=== PATIENT | male | born 1960 | race Caucasian/White ===

== ENCOUNTER 2023-03-01 06:11 | Emergency (ER) | payer OTHER, SELFPAY ==
[2023-03-01] VITALS (8 sets, daily range): BP systolic 130–162; BP diastolic 82–103; PULSE 70–83; RESP 14–20; TEMP 36.6–37.2; O2SAT 95–98; BMI 33.2
--- NOTE | ~2023-03-01 | XR_ITS ---
EXAMINATION: XR CHEST CLINICAL INFORMATION: Epigastric pain. Possible esophageal foreign body. COMPARISON: None available. TECHNIQUE: 2 views of the chest were obtained. FINDINGS: No significant abnormality is noted involving the heart, lungs, mediastinum, bony thorax or soft tissues. XR/XR chest 2V IMPRESSION: Unremarkable chest exam.
--- NOTE | 2023-03-01 06:47 | ED.GENADULT ---
HPI - General Adult General Chief complaint: General Medical Stated complaint: ?Something in throat Time Seen by Provider: 03/01/23 06:47 Source: patient Mode of arrival: ambulatory Limitations: no limitations History of Present Illness HPI narrative: Patient is a 62 year old assigned male at with a history of anxiety presenting to the emergency department today with esophagus pain. Patient states that last night he ate muscles and afterward, was having pain with swallowing. Patient states that he is able to swallow however, it hurts. Patient states that he has been able to have multiple glasses of water and not thrown anything up. Patient denies any dizziness, lightheadedness, abdominal pain, nausea, vomiting, fever, chills, blurry vision, double vision, loss of vision, chest pain, difficulty breathing, shortness of breath, back pain, night sweats, pain with urination, increased urinary frequency, increased urinary urgency, blood in his urine or stool, syncope or a near syncopal episode, recent trauma or falls, bowel incontinence, bladder incontinence, bowel retention, bladder retention, or any other complaints at this time. Onset (ago): hour(s) Severity: mild Severity scale (1-10): 3 Quality: aching Pain Consistency: constant Relieving factors: none Exacerbating factors: other (swallowing) Associated symptoms: denies other symptoms Treatments prior to arrival: none Related Data Previous Rx's Medication Instructions Recorded omeprazole 20 mg capsule,delayed 20 mg PO DAILY #14 caps 03/01/23 release Allergies Allergy/AdvReac Type Severity Reaction Status Date / Time No Known Allergies Allergy Unverified 06/05/20 16:30 [No Known Allergies*] Review of Systems Constitutional: Constitutional: Reports no additional constitutional complaints, Denies chills, Denies fever(s) and Denies night sweats Eyes: Eyes: Reports no additional eye complaints, Denies blurry vision, Denies change in vision, Denies diplopia, Denies eye discharge, Denies loss of vision and Denies eye pain ENT: Denies dizziness Comments: pain with swallowing Cardiovascular: Cardiovascular: Reports no additional cardiovascular complaints, Denies chest pain, Denies lightheadedness, Denies Loss of Consciousness and Denies dyspnea Respiratory: Respiratory: Reports no additional respiratory complaints and Denies dyspnea Gastrointestinal: Gastrointestinal: Reports no additional gastrointestinal complaints, Denies abdominal pain, Denies melena, Denies hematochezia, Denies change in bowel habits and Denies change in stool character Genitourinary: Genitourinary: Reports no additional male genitourinary complaints, Denies hematuria, Denies oliguria, Denies difficulty urinating, Denies dysuria, Denies urinary frequency, Denies urinary hesitancy, Denies urinary incontinence and Denies urinary urgency Musculoskeletal: Musculoskeletal: Reports no additional musculoskeletal complaints, Denies numbness and Denies tingling Neurologic: Denies dizziness, Denies loss of vision, Denies numbness and Denies tingling Psychiatric: Psychiatric: Reports no additional psychiatric complaints Endocrine: Endocrine: Reports no additional endocrine complaints Hematologic/Lymphatic: Hematologic/Lymphatic: Reports no additional hematologic/lymphatic complaints Allergic/Immunologic: Allergic/Immunologic: Reports no additional allergic/immunologic complaints PMFSH Past Medical History Attestation statement: The following information was validated with the patient. Source: old records reviewed and nursing notes reviewed Social History Social History Alcohol intake: never Smoked in Last 30 Days: No Use of substances other than those prescribed or required for medical reasons: No Advance Directives: No Advance Directives Information Provided: Yes Physical Exam ED Vital Signs: Vital Signs - 24 hr 03/01/23 06:23 03/01/23 06:47 03/01/23 07:31 Temperature 98.1 F 98.2 F 98.9 F Pulse Rate 83 77 77 Respiratory Rate 16 16 16 Blood Pressure 162/103 H 160/93 H 143/94 H Pulse Oximetry 98 97 Oxygen Delivery Method Room Air Room Air Room Air 03/01/23 07:33 03/01/23 07:51 03/01/23 08:01 Temperature 98.0 F 98.7 F Pulse Rate 76 80 71 Respiratory Rate 14 15 Blood Pressure 143/94 H 148/89 H 130/84 Pulse Oximetry 95 95 Oxygen Delivery Method Room Air Room Air 03/01/23 08:19 03/01/23 08:43 Temperature 97.9 F 98.6 F Pulse Rate 77 70 Respiratory Rate 20 17 Blood Pressure 134/82 135/85 Pulse Oximetry 97 95 Oxygen Delivery Method Room Air Room Air BMI result Body Mass Index 33.2 Const General: cooperative, no acute distress, alert and awake Nutritional Appearance: well nourished Orientation/consciousness: patient oriented x3 Limitations: no limitations HENMT Head: Yes normal to inspection and Yes atraumatic Ears: hearing grossly normal bilaterally and external ears normal General nose exam: Normal external nose present, no nasal discharge noted and no epistaxis Face and sinus: Yes normal facial exam, No abrasion and No laceration Mouth: Normal oral and palatal mucosa present, no drooling and no muffled voice Eyes General: appearance normal, both eyes and all related structures Periorbital: periorbital findings normal Eyelids: Yes eyelids normal Conjunctivae: conjunctivae normal Pupils: Equal, round and reactive pupils present EOM: EOMs intact bilaterally Neck Neck: Yes normal visual inspection, Yes full ROM and Yes no lymphadenopathy Chest Chest palpation & inspection: normal inspection of the chest Resp Effort & Inspection: normal respiratory effort and able to speak in complete sentences Auscultation: clear to auscultation bilaterally Cardio Rate: regular rate Rhythm: regular rhythm GI Inspection: Yes normal to inspection Palpation (GI): Soft to palpation, not firm, nontender, no guarding and not rigid Neuro General: patient oriented x3 and moves all extremities Cranial nerves: Yes Equal, round and reactive pupils present Cognition (Neuro): normal cognition Motor exam (neuro): 5/5 motor strength present throughout Sensory Exam: Normal double simultaneous stimulation for sensation Coordination: [id number] test normal Extrem General: Yes normal to inspection, Yes full ROM and Yes capillary refill normal Psych Appearance: grossly normal Mental Status: mental status grossly normal Affect: normal affect Attitude: cooperative Thought process: Normal thought process present Thought content: Normal thought content present Insight: Good insight present (Psych) Medications Administered Discontinued Medications Generic Name Dose Route Start Last Admin Trade Name Erin PRN Reason Stop Dose Admin Al Hydroxide/Mg Hydroxide 15 ml 03/01/23 06:50 03/01/23 07:36 Magnesium Hydrox/Alum Hydrox 30 Ml Oral.Susp PO 03/01/23 06:51 15 ml ONCE ONE Administration Lidocaine HCl 15 ml 03/01/23 06:50 03/01/23 07:36 Lidocaine Hcl Viscous 2 % 15 Ml Solution MUCOUS MEM 03/01/23 06:51 15 ml ONCE ONE Administration Nitroglycerin 0.4 mg 03/01/23 06:50 03/01/23 07:33 Nitroglycerin 0.4 Mg Tab.Subl SUBLINGUAL 03/01/23 06:51 0.4 mg ONCE ONE Administration Pantoprazole Sodium 40 mg 03/01/23 06:50 03/01/23 07:36 Pantoprazole Sodium 40 Mg/10 Ml Vial IVPUSH 03/01/23 06:51 40 mg ONCE ONE Administration Medical Decision Making Medical Decision Making [facility] Narrative: Patient is a 62 year old assigned male at with a history of anxiety presenting to the emergency department today with esophageal pain. Patient's physical exam was unremarkable. Patient's blood work was unremarkable. Patient's chest x-ray showed no acute process. I explained my physical exam findings as well as all test results to the patient. I answered all questions asked by the patient. Patient received PO nitro to assist with smooth muscle relaxation, maalox, protonix, and viscous lidocaine which he stated helped his symptoms significantly. Patient was able to tolerate all PO intake while in the department and did not have any episodes of vomiting. I stressed the importance of the patient taking his medication as prescribed. I stressed the importance of the patient following up with his primary care provider and a GI specialist. I stressed the importance of the patient returning to the emergency department immediately if his symptoms were to worsen or if he were to develop any dizziness, shortness of breath, difficulty breathing, chest pain, blurry vision, loss of vision, nausea, vomiting, abdominal pain, fever, chills, back pain, or any other complaints. Patient verbalized agreement and understanding with this treatment plan and discharge. Differential Diagnosis Differential Diagnoses: The differential diagnosis associated with the presentation includes esophagits, GERD Admission/Observation Consideration of admission/observation: Escalation of care including admission/observation considered Patient would have been admitted to the hospital had his work up had any findings where hospital admission was appropriate. Lab Data [facility] Lab Attestation statement: I reviewed the patient's lab results. My interpretation of these studies and their corresponding values is that they are grossly normal. 03/01/23 07:23 03/01/23 07:23 Labs: Lab Results 03/01/23 03/01/23 Range/Units 07:23 07:23 WBC 10.2 (4.8-10.8) X10*3/uL RBC 5.05 (4.60-5.80) X10*6/uL Hgb 15.8 (14.0-18.0) g/dl Hct 44.7 (42.0-52.0) % MCV 88.5 (80.0-98.0) fL MCH 31.3 (27.0-33.0) pg MCHC 35.3 (31.0-36.0) g/dl RDW 11.8 (11.0-16.0) % Plt Count 152 L (160-400) X10*3/uL MPV 9.6 (9.4-12.4) fL Immature Gran % (Auto) 0.3 (0.0-0.4) % Neut % (Auto) 80.0 H (45-73) % Lymph % (Auto) 10.3 L (20-40) % [place] % (Auto) 8.3 (2-11) % Eos % (Auto) 0.9 (0-4) % Baso % (Auto) 0.2 (0-2) % Lymph # (Auto) 1.1 L (1.2-4.9) X10*3/uL [place] # (Auto) 0.9 (0.1-1.2) X10*3/uL Eos # (Auto) 0.1 (0.0-0.4) X10*3/uL Baso # (Auto) 0.0 (0.0-0.2) X10*3/uL Abs Immat Gran (auto) 0.03 (0.00-0.03) X10*3/uL Absolute Neuts (auto) 8.2 (2.0-8.3) x10*3/uL Absolute Nucleated RBC 0.000 (0.0-0.012) X10*3/uL Nucleated RBC % (auto) 0.0 (0.0-0.2) /100WBC Sodium 141 (135-145) mmol/L Potassium 4.6 (3.3-5.1) mmol/L Chloride 107 (96-108) mmol/L Carbon Dioxide 29 (22-29) mmol/L Anion Gap 10 L (12-20) BUN 17 H (9-16) mg/dL Creatinine 0.82 (0.5-1.4) mg/dL Estim Creat Clear Calc 141.2 Estimated GFR > 60 Random Glucose 111 (60-115) mg/dL Calcium 8.9 (8.4-10.2) mg/dL Total Bilirubin 1.0 (0.0-1.0) mg/dL AST 28 (5-37) U/L ALT 60 H (0-40) U/L Alkaline Phosphatase 67 (39-117) U/L Total Protein 6.6 (6.5-8.0) g/dL Albumin 4.1 (3.5-5.0) g/dL Independent Interpretation I performed an independent interpretation of an: Plain X-Ray Interpretation: My interpretation is in agreement with the radiologist's impression of this imaging study. EXAMINATION: XR CHEST CLINICAL INFORMATION: Epigastric pain. Possible esophageal foreign body. COMPARISON: None available. TECHNIQUE: 2 views of the chest were obtained. FINDINGS: No significant abnormality is noted involving the heart, lungs, mediastinum, bony thorax or soft tissues. XR/XR chest 2V IMPRESSION: Unremarkable chest exam. Dictated By: Vito Gaytan MD Signed By: Electronically signed by Vito Gaytan MD 03/01/23 0834 Chronic Conditions Patient?s care impacted by: Other (anxiety) Discharge Plan Discharge Clinical Impression: Esophagitis Patient Disposition: Home, Self-Care Instructions: Esophagitis (ED) Additional Instructions: Follow up with your primary care provider and a GI specialist. Return to the emergency department immediately if your symptoms worsen or if you develop any dizziness, shortness of breath, difficulty breathing, chest pain, blurry vision, loss of vision, nausea, vomiting, abdominal pain, fever, chills, back pain, or any other complaints. Prescriptions: New omeprazole 20 mg capsule,delayed release(DR/EC) 20 mg PO DAILY Qty: 14 0RF Referrals: [facility] [place] [facility] [Provider Group] (Call to establish and follow up with a GI specialist. ) Ron Blancas III, MD [Primary Care Provider] - Stand Alone Forms: Work/School Release Print Language: Monegasque
[2023-03-01 07:27] LABS: MANUAL DIFF FLAG NO
[2023-03-01 07:32] LABS: Basophils Percent Auto 0.2 % (0-2); Eosinophils Absolute Auto 0.1 X10*3/uL (0.0-0.4); Eosinophils Percent Auto 0.9 % (0-4); Hematocrit 44.7 % (42.0-52.0); Hemoglobin 15.8 g/dl (14.0-18.0); Imm Gran Abs Auto 0.03 X10*3/uL (0.00-0.03); Imm Gran Pct Auto 0.3 % (0.0-0.4); Lymphocytes Absolute Auto 1.1 X10*3/uL (1.2-4.9); Lymphocytes Percent Auto 10.3 % (20-40); Mean Corpuscular HGB Conc 35.3 g/dl (31.0-36.0); Mean Corpuscular Hemoglobin 31.3 pg (27.0-33.0); Mean Corpuscular Volume 88.5 fL (80.0-98.0); Mean Platelet Volume 9.6 fL (9.4-12.4); Monocytes Absolute Auto 0.9 X10*3/uL (0.1-1.2); Monocytes Percent Auto 8.3 % (2-11); Neutrophils Absolute Auto 8.2 x10*3/uL (2.0-8.3); Platelet Count 152 X10*3/uL (160-400); Red Blood Count 5.05 X10*6/uL (4.60-5.80); Red Cell Distribution Width 11.8 % (11.0-16.0); White Blood Count 10.2 X10*3/uL (4.8-10.8)
[2023-03-01] MEDS: Nitroglycerin 0.4 MG TAB.SUBL SUBLINGUAL (07:33)
[2023-03-01] MEDS: Pantoprazole Sodium 40 MG/10 ML VIAL IVPUSH (07:36)
[2023-03-01] MEDS: Magnesium Hydrox/Alum Hydrox 30 ML ORAL.SUSP 15 ML PO (07:36)
[2023-03-01] MEDS: Lidocaine HCl Viscous 2 % 15 ML SOLUTION MUCOUS MEM (07:36)
[2023-03-01 07:42] LABS: Alanine Aminotransferase 60 U/L (0-40); Albumin Level 4.1 g/dL (3.5-5.0); Alkaline Phosphatase 67 U/L (39-117); Anion Gap 10 (12-20); Aspartate Amino Transferase 28 U/L (5-37); Blood Urea Nitrogen 17 mg/dL (9-16); Calcium 8.9 mg/dL (8.4-10.2); Carbon Dioxide 29 mmol/L (22-29); Chloride 107 mmol/L (96-108); Creatinine Clr Calc Pharmacy 141.2; Estimated Glomerular Filt Rate > 60; Glucose Random 111 mg/dL (60-115); Potassium 4.6 mmol/L (3.3-5.1); Sodium 141 mmol/L (135-145); Total Protein 6.6 g/dL (6.5-8.0)
--- NOTE | 2023-03-01 08:03 | PC.NURSE ---
pt continues to speak in full sentences. pt states that his throat feels a little less scratchy . mlp aware.
== END 2023-03-01 09:11 | disposition home or self-care (01) ==
PROVIDERS: Physician Assistant Medical; Emergency Provider Internal Medicine; PCP Internal Medicine
DX: K20.90 Esophagitis, unspecified without bleeding (principal); R13.10 Dysphagia, unspecified; R10.13 Epigastric pain; Z79.899 Other long term (current) drug therapy
CPT/HCPCS: 36415; 71046; 80053; 85025; 96374; 99284

== ENCOUNTER 2024-02-20 05:42 | Emergency (ER) | payer OTHER, SELFPAY ==
--- NOTE | 2024-02-20 | ECG_ITS ---
Test Reason : CHEST PAIN Blood Pressure : / mmHG Vent. Rate : 070 BPM Atrial Rate : 070 BPM P-R Int : 174 ms QRS Dur : 090 ms QT Int : 396 ms P-R-T Axes : 039 -06 004 degrees QTc Int : 427 ms Normal sinus rhythm Minimal voltage criteria for LVH, may be normal variant ( R in aVL ) Borderline ECG When compared with ECG of 12-OCT-2019 11:23, No significant change was found Referred By: Generic ED Physician Electronically Signed By:JAYE ISAAC MD
--- NOTE | ~2024-02-20 | XR_ITS ---
EXAMINATION: XR CHEST CLINICAL INFORMATION: Chest pain and shortness of breath COMPARISON: 03/01/2023 TECHNIQUE: Frontal view of the chest was obtained. FINDINGS: No significant abnormality is noted involving the heart, lungs, mediastinum, bony thorax or soft tissues. XR/XR chest 1V IMPRESSION: Unremarkable examination.
[2024-02-20 05:49] VITALS: BP 151/94; PULSE 78; RESP 16; TEMP 36.7; O2SAT 98; BMI 33.2
[2024-02-20 06:03] LABS: MANUAL DIFF FLAG NO
[2024-02-20 06:09] LABS: Basophils Percent Auto 0.6 % (0-2); Eosinophils Absolute Auto 0.1 X10*3/uL (0.0-0.4); Eosinophils Percent Auto 2.4 % (0-4); Hematocrit 47.5 % (42.0-52.0); Hemoglobin 17.1 g/dl (14.0-18.0); Imm Gran Abs Auto 0.02 X10*3/uL (0.00-0.03); Imm Gran Pct Auto 0.4 % (0.0-0.4); Lymphocytes Absolute Auto 1.5 X10*3/uL (1.2-4.9); Lymphocytes Percent Auto 30.2 % (20-40); Mean Corpuscular Hemoglobin 31.7 pg (27.0-33.0); Mean Corpuscular Volume 88.1 fL (80.0-98.0); Mean Platelet Volume 9.3 fL (9.4-12.4); Monocytes Absolute Auto 0.5 X10*3/uL (0.1-1.2); Neutrophils Absolute Auto 2.8 x10*3/uL (2.0-8.3); Neutrophils Percent Auto 56.4 % (45-73); Platelet Count 157 X10*3/uL (160-400); Red Blood Count 5.39 X10*6/uL (4.60-5.80); Red Cell Distribution Width 11.9 % (11.0-16.0); White Blood Count 4.9 X10*3/uL (4.8-10.8)
[2024-02-20 06:20] LABS: Alanine Aminotransferase 71 U/L (0-40); Albumin Level 4.2 g/dL (3.5-5.0); Alkaline Phosphatase 70 U/L (39-117); Anion Gap 13 (12-20); Aspartate Amino Transferase 31 U/L (5-37); Bilirubin Total 0.7 mg/dL (0.0-1.0); Blood Urea Nitrogen 17 mg/dL (9-16); Calcium 8.9 mg/dL (8.4-10.2); Carbon Dioxide 22 mmol/L (22-29); Chloride 109 mmol/L (96-108); Creatinine Clr Calc Pharmacy 116.7; Estimated Glomerular Filt Rate > 60; Glucose Random 119 mg/dL (60-115); Potassium 4.2 mmol/L (3.3-5.1); Sodium 140 mmol/L (135-145); Total Protein 6.8 g/dL (6.5-8.0)
[2024-02-20 06:22] LABS: Troponin-I High Sensitivity < 2.7 ng/L (<3.5-35.0)
[2024-02-20 06:34] VITALS: BP 125/89; PULSE 76; RESP 18; TEMP 36.4; O2SAT 98
--- NOTE | 2024-02-20 06:49 | PC.NURSE ---
pt brought to ed 16 from . changed to hospital gown placed on heart monitor. nsr 76 bpm. vss. pt resting comfortably awaiting primary eval by ed provider. call ames within reach.
[2024-02-20 08:30] VITALS: BP 125/82; PULSE 84; RESP 17; TEMP 36.6; O2SAT 96
--- NOTE | 2024-02-20 09:22 | ED.CHESTPAIN ---
HPI - Chest Pain General Chief Complaint: Chest Pain Stated Complaint: chest pains Time Seen by Provider: 02/20/24 09:21 Source: patient and RN notes reviewed Mode of arrival: ambulatory Limitations: no limitations History of Present Illness ED Provider: Cathy Flynn PA-C HPI narrative: This is a 63-year-old male, with a history of hypertension and hyperlipidemia, who presents emergency department with complaints of chest pain which started this morning. Patient states that he woke up from sleep at 4:00 a.m. with a tight sensation in his chest causing him to feel short of breath. He states that this lasted for several hours and he decided to seek emergent care. Patient states that the chest tightness is midsternal, does not radiate. States that the pain has improved since his arrival. He has not taken any medications to treat his current symptoms. He denies getting any chest pain with exerting himself. He endorse some nausea, denies any headaches, dizziness, blurred vision, palpitations, abdominal pain, vomiting or diarrhea. He does endorse that he has been going through a significant amount of stress over the last several weeks due to work-related problems. He states that his father had an enlarged heart in his brother had a leaky valve, no other family medical history. He currently is going up in his lisinopril, increased last week, and he discontinued his statin medication due to brain fog side effects. He had a similar episode several years ago medically evaluated, was not diagnosed any particular issue. Denies any recent trauma, surgery hospitalizations, travel, clotting disorder, cancer history. No cocaine use, no other drug use. No other complaints or concerns at this time. MD complaint: chest pain Pertinent past history: coronary artery disease Timing of current episode: constant Prior episodes: Yes Onset: during rest and awoke with symptoms Pain location: substernal Pain radiation: none Severity: moderate Quality: tightness Exacerbating factors: nothing Associated symptoms: nausea Treatment prior to arrival: none Risk Factors Coronary artery disease risk factors: hyperlipidemia and hypertension Thoracic aortic dissection risk factors: none Related Data Previous Rx's ?Medication ?Instructions ?Recorded omeprazole 20 mg capsule,delayed 20 mg PO DAILY #14 caps 03/01/23 release Allergies Allergy/AdvReac Type Severity Reaction Status Date / Time No Known Allergies Allergy Verified 02/20/24 05:51 [No Known Allergies*] Review of Systems Review of Systems: Yes all other systems are reviewed and are negative Constitutional: Constitutional: Reports as per [facility] Social History Social History Alcohol intake: never Advance Directives: No Advance Directives Information Provided: No Do you have a plan to hurt others: No Plan Physical Exam Vital Signs: Vital Signs: Last Vital Signs Temp 97.9 F 02/20/24 08:30 Pulse 84 02/20/24 08:30 Resp 17 02/20/24 08:30 BP 125/82 02/20/24 08:30 Pulse Ox 96 02/20/24 08:30 O2 Del Method Room Air 02/20/24 08:30 BMI result Body Mass Index 33.2 Const: General: cooperative, comfortable and no acute distress Orientation/consciousness: patient oriented x3 Limitations: no limitations HEENT: Head: Yes normal to inspection, Yes normocephalic and Yes atraumatic Ears: hearing grossly normal bilaterally General nose exam: Normal external nose present Face and sinus: Yes normal facial exam Mouth: Normal oral and palatal mucosa present, oropharynx normal and moist mucous membranes Throat: Yes posterior oropharynx normal Eyes: General: appearance normal, both eyes and all related structures Eyelids: Yes eyelids normal Conjunctivae: conjunctivae normal Sclerae: sclerae normal Pupils: Equal, round and reactive pupils present EOM: EOMs intact bilaterally Neck: Neck: Yes normal visual inspection, Yes full ROM and Yes no lymphadenopathy Lymphatic: no lymphadenopathy noted Chest: Other: Mild anterior chest wall tenderness palpation Chest palpation & inspection: normal inspection of the chest Resp: Effort & Inspection: normal respiratory effort and able to speak in complete sentences Auscultation: clear to auscultation bilaterally, no crackles, no rales, no rhonchi and no wheezes Cardio: Rate: regular rate Rhythm: regular rhythm Heart sounds: S1 normal heart sound present and S2 normal heart sound present GI: Inspection: Yes normal to inspection Skin: General skin exam: no rashes or lesions noted Trauma: no lacerations or abrasions Wounds: no wounds Neuro: General: patient oriented x3 and moves all extremities Cranial nerves: Yes Equal, round and reactive pupils present Extrem: General: Yes normal to inspection Right upper extremity: normal to inspection Left upper extremity: normal to inspection Right lower extremity: normal to inspection Left lower extremity: normal to inspection Course Reevaluation(s) Reevaluation #1: Second troponin negative. EKG reassuring. Chest x-ray unremarkable. I reviewed this case with my attending physician, Dr. Vazquez, given pain that awoke him from sleep. 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 He understands and agrees with plan. Given strict return precautions. Patient stable for discharge. Time: 10:03 Medical Decision Making Medical Decision Making [facility] Narrative: This is a 63-year-old male, with a history of hyperlipidemia, and hypertension, who presents emergency department with complaints of midsternal chest pain which awoke him from sleep. On arrival, he was mildly hypertensive at 151/94, repeat 125/82, all other vital signs within normal limits. He is awake alert and oriented. Under no acute distress. He has mild tenderness palpation along the anterior chest wall. All other physical exam findings unremarkable. Differential diagnoses include ACS, costochondritis, anxiety, pneumothorax, URI, pneumonia. Given presentation, cardiac workup will be performed. Plan: Labs, EKG, Chest xray Differential Diagnosis Differential Diagnoses: The differential diagnosis associated with the presentation includes See above Admission/Observation Consideration of admission/observation: Escalation of care including admission/observation considered Escalation of care including admission/observation considered however given workup today not warranted at this time. Lab Data [facility] Lab Attestation statement: I reviewed the patient's lab results. No leukocytosis, stable H&H, platelets 157, viral elevation in ALT at 71, troponin x2 negative. 02/20/24 05:58 02/20/24 05:58 Labs: Lab Results 02/20/24 02/20/24 Range/Units 05:58 08:57 WBC 4.9 (4.8-10.8) X10*3/uL RBC 5.39 (4.60-5.80) X10*6/uL Hgb 17.1 (14.0-18.0) g/dl Hct 47.5 (42.0-52.0) % MCV 88.1 (80.0-98.0) fL MCH 31.7 (27.0-33.0) pg MCHC 36.0 (31.0-36.0) g/dl RDW 11.9 (11.0-16.0) % Plt Count 157 L (160-400) X10*3/uL MPV 9.3 L (9.4-12.4) fL Immature Gran % (Auto) 0.4 (0.0-0.4) % Neut % (Auto) 56.4 (45-73) % Lymph % (Auto) 30.2 (20-40) % [place] % (Auto) 10.0 (2-11) % Eos % (Auto) 2.4 (0-4) % Baso % (Auto) 0.6 (0-2) % Lymph # (Auto) 1.5 (1.2-4.9) X10*3/uL [place] # (Auto) 0.5 (0.1-1.2) X10*3/uL Eos # (Auto) 0.1 (0.0-0.4) X10*3/uL Baso # (Auto) 0.0 (0.0-0.2) X10*3/uL Abs Immat Gran (auto) 0.02 (0.00-0.03) X10*3/uL Absolute Neuts (auto) 2.8 (2.0-8.3) x10*3/uL Absolute Nucleated RBC 0.000 (0.0-0.012) X10*3/uL Nucleated RBC % (auto) 0.0 (0.0-0.2) /100WBC Sodium 140 (135-145) mmol/L Potassium 4.2 (3.3-5.1) mmol/L Chloride 109 H (96-108) mmol/L Carbon Dioxide 22 (22-29) mmol/L Anion Gap 13 (12-20) BUN 17 H (9-16) mg/dL Creatinine 0.98 (0.5-1.4) mg/dL Estim Creat Clear Calc 116.7 Estimated GFR > 60 Random Glucose 119 H (60-115) mg/dL Calcium 8.9 (8.4-10.2) mg/dL Total Bilirubin 0.7 (0.0-1.0) mg/dL AST 31 (5-37) U/L ALT 71 H (0-40) U/L Alkaline Phosphatase 70 (39-117) U/L Troponin I High Sens < 2.7 < 2.7 (<3.5-35.0) ng/L Total Protein 6.8 (6.5-8.0) g/dL Albumin 4.2 (3.5-5.0) g/dL Independent Interpretation I performed an independent interpretation of an: EKG Interpretation: EKG normal sinus rhythm with no ST elevation or depression. Ventricular rate of 70 beats per minute, NM interval 174, QT/QTC 396/427. Radiology Impression Discussion of test interpretation with radiology: I have reviewed the radiologist's reading. Radiologist Impression: EXAMINATION: XR CHEST CLINICAL INFORMATION: Chest pain and shortness of breath COMPARISON: 03/01/2023 TECHNIQUE: Frontal view of the chest was obtained. FINDINGS: No significant abnormality is noted involving the heart, lungs, mediastinum, bony thorax or soft tissues. XR/XR chest 1V IMPRESSION: Unremarkable examination. Dictated By: Fuentes Kline MD Independent Historian Clinical information obtained from an independent historian. History obtained from or confirmed by: Spouse Chronic Conditions Patient?s care impacted by: Other (Hypertension, hyperlipidemia) Scores Heart Score History: -1- moderately suspicious ECG: -0- normal Age: -2- > or = 65 Risk factory: -1- 1 or 2 risk factors Troponin: -0- < or = normal limit Score: 4 Risk: 16.6% Discharge Plan Discharge Clinical Impression: Chest pain Patient Disposition: Home, Self-Care Instructions: Chest Pain (ED) Additional Instructions: You were seen in the emergency department due to chest pain. It is unclear what is causing you to have the symptoms however your workup today was reassuring. You need to follow-up with your primary care physician regarding this visit. I am also giving you a referral to cardiology for follow up. Drink plenty of fluids and get plenty of rest. If any new or worsening symptoms occur including but not limited to worsening chest pain, shortness of breath, please return for re-evaluation. Prescriptions: No Action omeprazole 20 mg capsule,delayed release(DR/EC) 20 mg PO DAILY Qty: 14 0RF Referrals: [facility] [place] Group] Stand Alone Forms: Work/School Release Print Language: Croatian
[2024-02-20 09:40] LABS: Troponin-I High Sensitivity < 2.7 ng/L (<3.5-35.0)
[2024-02-20 10:40] VITALS: BP 125/82; PULSE 84; RESP 17; TEMP 36.6; O2SAT 96
== END 2024-02-20 10:40 | disposition home or self-care (01) ==
PROVIDERS: Emergency Provider Emergency Medicine; PCP Internal Medicine
DX: R07.9 Chest pain, unspecified (principal); R06.02 Shortness of breath; I10 Essential (primary) hypertension; E78.5 Hyperlipidemia, unspecified; Z79.899 Other long term (current) drug therapy
CPT/HCPCS: 36415; 71045; 80053; 84484; 85025; 93005; 99283; 99284

== ENCOUNTER → 2024-02-20 05:43 | Outpatient (BNV) | payer OTHER, SELFPAY | PROVIDERS: Emergency Provider Emergency Medicine; PCP Internal Medicine; Visit Provider Internal Medicine Cardiovascular Disease | DX: R07.9 Chest pain, unspecified (principal) | CPT/HCPCS: 93010 ==

== ENCOUNTER 2024-03-30 14:50 | Outpatient (AMB) | payer OTHER, SELFPAY ==
[2024-03-30 14:57] VITALS: BP 138/80; PULSE 87; BMI 33.7
--- NOTE | 2024-03-30 14:57 | A.OFFVIS_ITS ---
Vital Signs 03/30/24 14:57 Height 6 ft 5 in Weight 284 lb 6.341 oz BMI 33.7 BP 138/80 Blood Pressure Location Lt brachial Position Sitting Pulse 87 Pulse Source Pulse Oximeter Intake Visit Reasons: Er Follow up-Chest Pains, Family History. Allergies Seasonal Allergies Allergy (Mild, Verified 03/30/24 15:05) cough rosuvastatin Adverse Reaction (Verified 03/30/24 15:15) memory issue HPI Comments Details: 64-year-old male presents today for a new patient visit. He was seen in the Emergency Department at [facility] on 02/20/2024. He had been woken up with some chest tightness. He reports he did nothing different that day. Looking back he reports that it could of been related to stress from work as it has not happened again and he has had a recent blood pressure medication change. His lisinopril has been increased. He reports no significant medical history other then having a few concisions. He does not smoke, drink alcohol, or use illicit drugs. He has been trying to exercise more and eat better. Blood pressures at home have been 110s-130/80. Reports no family history of cardiac issues. [facility] Medical History Hypertension H/O multiple concussions Family History Mother Stroke Father Enlarged heart Brother Leaky heart valve Social History (Updated 03/30/24 @ 15:19 by Grisel Oliveira NP) Alcohol intake: never Patient Tobacco Use Status: Never used Tobacco Review of Systems Const Denies weakness ENT Denies dizziness Card Denies chest pain, Denies chest pain with activity, Denies syncope, Denies rapid heart rate, Denies pedal edema, Denies edema, Denies leg edema, Denies lightheadedness, Denies palpitations, Denies dyspnea, Denies dyspnea on exertion and Denies orthopnea Resp Denies cough, Denies dyspnea and Denies dyspnea on exertion GI Denies hematochezia and Denies change in stool character Musc Denies abnormal gait, Denies muscle cramps, Denies muscle weakness, Denies numbness, Denies radiating pain into limb and Denies tingling Neuro Denies abnormal gait, Denies dizziness, Denies syncope, Denies numbness, Denies tingling and Denies weakness Endo Denies palpitations Physical Exam Vital Signs: Last Vital Signs Pulse 87 03/30/24 14:57 BP 138/80 03/30/24 14:57 BMI result Body Mass Index 33.7 Const General: healthy appearing and no acute distress Orientation/consciousness: patient oriented x3 HEENT Head: Yes normal to inspection Eyes General: appearance normal, both eyes and all related structures Neck Neck: Yes normal visual inspection Chest Chest palpation & inspection: normal inspection of the chest Resp Effort & Inspection: normal respiratory effort Auscultation: clear to auscultation bilaterally Cardio Jugular venous distension: no JVD Palpation: normal PMI Rate: regular rate Rhythm: regular rhythm Heart sounds: S1 normal heart sound present, S2 normal heart sound present, no click, no gallops, no murmurs and no rubs GI Inspection: Yes normal to inspection Palpation (GI): Soft to palpation Skin General skin exam: no rashes or lesions noted Neuro General: patient oriented x3 Extrem General: Yes normal to inspection Psych Appearance: grossly normal Assessment & Plan Assessment & Plan (1) Chest pain: Code(s): R07.9 - Chest pain, unspecified Category: Medical Plan: Will obtain stress test for atypical chest pains. ED care if needed. report if any reoccurance. (2) Hypertension: Code(s): I10 - Essential (primary) hypertension Category: Medical Plan: Treated by PCP. Continue to monitor. Orders: Orders CA stress test 03/30/24 I10 - Essential (primary) hypertension, R07.9 - Chest pain, unspecified CA echo transthoracic complete 03/30/24 I10 - Essential (primary) hypertension, R07.9 - Chest pain, unspecified Coding Level of Care Code New Pt Level 4 (21249) Diagnoses Chest pain R07.9 Hypertension I10
== END 2024-03-30 15:37 | disposition home or self-care (01) ==
PROVIDERS: PCP Nurse Practitioner Family; Visit Provider Nurse Practitioner
DX: R07.9 Chest pain, unspecified (principal); I10 Essential (primary) hypertension
CPT/HCPCS: 99204

== ENCOUNTER → 2024-03-30 14:50 | Outpatient (BNVA) | payer OTHER, SELFPAY | PROVIDERS: PCP Internal Medicine; Visit Provider Nurse Practitioner | DX: I10 Essential (primary) hypertension (principal); R07.9 Chest pain, unspecified | CPT/HCPCS: 99202 ==

== ENCOUNTER → 2024-04-17 08:16 | Outpatient (REF) | payer OTHER, SELFPAY ==
--- NOTE | 2024-04-17 08:19 | CA_ITS ---
Transthoracic Echocardiogram Patient (Last, First, Middle): Claus Vaughn, Gender: Male Date of : 1960 Age: 64 Procedure Date: 04/17/2024 Procedure Type: Transthoracic Echocardiogram Location: OP Height: 195. cm Weight: 129.28 kg BSA: 2.59 m2 Heart Rate: 75 bpm BP: 150 / 85 mmHg Athletic Turf Worker: LINA Referring MD: Grisel Oliveira NP Symptoms: R07.9 - Chest pain, unspecified Study Quality: Fair ECG Rhythm: Sinus Conclusions: - The left ventricular systolic function is normal. The calculated ejection fraction is 58% by biplane method. - There is moderate septal asymmetric hypertrophy. - No obvious valvular pathology seen on this study. - There is mild dilatation of the ascending aorta measuring 4.40 cm. Findings Left Ventricle Normal left ventricular cavity size. There is mildly increased left ventricular wall thickness. The left ventricular systolic function is normal. The calculated ejection fraction is 58% by biplane method. There is no evidence of regional wall motion abnormalities. Diastolic function is normal for age. There is moderate septal asymmetric hypertrophy. LV peak GLS -17%. Right Ventricle Mildly increased right ventricular cavity size. There is normal right ventricular systolic function. Atria The left atrium is normal in size. The right atrium is moderately dilated. Aortic Valve There is a normal trileaflet aortic valve. There is mild calcification of the aortic valve. There is no aortic valve stenosis. There is no aortic valve regurgitation. Mitral Valve The mitral valve appears normal. There is no mitral valve regurgitation. There is no mitral valve stenosis. Pulmonic Valve The pulmonic valve is likely normal. Tricuspid Valve Normal tricuspid valve structure. There is trace tricuspid valve regurgitation. Tricuspid regurgitation envelope is inadequate for calculation of right ventricular systolic pressure. Great Vessels There is mild dilatation of the ascending aorta measuring 4.40 cm. Venous The inferior vena cava is normal in size. Pericardium/Pleural There is no evidence of pericardial effusion. Prior Study Comparison No prior study available for comparison. Recommendations, Care & Conclusions No obvious valvular pathology seen on this study. Measurements 2D Linear Measurements IVSd: 1.35 0.6-0.9/0.6-1.0 cm LVIDd: 5.17 3.9-5.3/4.2-5.9 cm LVIDd Index: 2.00 2.4-3.2/2.2-3.1 cm/m2 LVIDs: 3.12 2.0-3.6 cm LVPWd: 1.09 0.7-1.1 cm LA Diam: 4.80 2.7-3.8/3.0-4.0 cm LAIDs Index: 1.85 1.5-2.3 cm/m2 LV Mass: 314.62 67-162/88-224 g LV Mass Index: 121.48 43-95/49-115 g/m2 LVOT Diam: 2.40 3.0+(-)1.3 cm 2D Systolic Function EF 4C: 51.80 >55% EF 2C: 61.90 >55% EF BiP: 58.30 >55% Mitral Valve MV Pk E: 0.71 MV PK A: 0.74 MV Decel Time: 228.00 E/A: 1.00 E'Lateral: 9.46 E'Medial: 7.29 E/E' Med: 9.80 E/E' Lat: 7.50 PHT: 67.00 MVA PHT: 3.28 Decel Tripp: 3.12 Aortic Valve AoV Pk Nicolás: 1.38 AoV Mn Nicolás: 0.91 AoV VTI: 0.26 AoV Pk Grad: 8.00 Aov Mn Grad: 4.00 HARMEET Cont.VTI: 3.73 LVOT LVOT Pk Nicolás: 1.11 LVOT Mn Nicolás: 0.72 LVOT VTI: 0.22 LVOT Pk Grad: 5.00 LVOT Mn Grad: 2.00 LVOT Diam: 2.40 LVOT Area: 4.52 Diastolic Function MV Pk E: 0.71 MV Pk A: 0.74 E/A: 1.00 E'Medial: 7.29 E/E' Med: 9.80 E' Laterial: 9.46 E/E' Lat: 7.50 Right Ventricle TAPSE (mm): 27.60 TVS' Nicolás: 15.90 Great Vessels Aorta Sinus of Valsalva: 3.80 2.0-3.5 cm Ao Asc: 4.40 2.1-3.4 cm Pulmonary Valve PV Pk Nicolás: 0.87 Peak PV Grad: 3.00 Updated in Other Vendor System with Status of Final James Jones MD electronically signed on 04/18/2024 2:55:57 PM with status of Final
--- NOTE | 2024-04-17 08:19 | CA_ITS ---
Acquisition Time: 2024-04-17 09:08:05 Total Exercise Time: 00:08:00 Test Indications: HTN Medications: SEE H Protocol: EDWARD Max HR: 139 BPM 87% of Pred: 158 BPM Max BP: 198/088 mmHG Max Work Load: 10.1 METS Exercise stress test exercise 8 min of Edward porotocol achieving 87% MPHR, with mild SOB. no chest discomfort, with hypertensive response - max bp 198/88, with isolated PVC and PACs, without EKG changes. Test reviewed with Dr. Ferguson. Referred By: Grisel Oilveira Overread By: Grisel Oliveira
== END ==
LOC: HO.CARD 08:16
PROVIDERS: Visit Provider Nurse Practitioner
DX: R07.9 Chest pain, unspecified (principal); I10 Essential (primary) hypertension
CPT/HCPCS: 93017; 93306; 93356

== ENCOUNTER → 2024-04-17 08:19 | Outpatient (BNV) | payer OTHER, SELFPAY | PROVIDERS: Visit Provider Nurse Practitioner | DX: I35.8 Other nonrheumatic aortic valve disorders (principal); I42.2 Other hypertrophic cardiomyopathy | CPT/HCPCS: 93016; 93018; 93350; 93356 ==

== ENCOUNTER 2024-05-09 12:55 | Outpatient (REF) | payer OTHER, SELFPAY ==
[2024-05-09 16:35] LABS: Anion Gap 12 (12-20); Blood Urea Nitrogen 21 mg/dL (9-16); Calcium 9.8 mg/dL (8.4-10.2); Carbon Dioxide 29 mmol/L (22-29); Chloride 104 mmol/L (96-108); Estimated Glomerular Filt Rate > 60; Glucose Random 75 mg/dL (60-115); Potassium 4.7 mmol/L (3.3-5.1); Sodium 140 mmol/L (135-145)
== END 2024-05-09 12:56 | disposition home or self-care (01) ==
LOC: HO.LAB 12:55
PROVIDERS: PCP Internal Medicine; Visit Provider Nurse Practitioner
DX: I10 Essential (primary) hypertension (principal); I77.810 Thoracic aortic ectasia; R07.9 Chest pain, unspecified
CPT/HCPCS: 36415; 80048; 99212

== ENCOUNTER 2024-05-09 12:55 | Outpatient (AMB) | payer OTHER, SELFPAY ==
[2024-05-09 12:58] VITALS: BP 126/68; PULSE 88; BMI 34.0
--- NOTE | 2024-05-09 12:58 | MHC.OFFVIS ---
Vital Signs 05/09/24 12:58 Height 6 ft 5 in Weight 286 lb 9.615 oz BMI 34.0 BP 126/68 Blood Pressure Location Lt brachial Position Sitting Pulse 88 Pulse Source Pulse Oximeter Intake Visit Reasons: 6-8 wk follow up Allergies Seasonal Allergies Allergy (Mild, Verified 03/30/24 15:05) cough rosuvastatin Adverse Reaction (Verified 03/30/24 15:15) memory issue HPI Comments Details: 64-year-old male presents today for a Follow-up visit. He was seen in the Emergency Department at [facility] on 02/20/2024. He had been woken up with some chest tightness. He reports he did nothing different that day. Looking back he reports that it could of been related to stress from work as it has not happened again and he has had a recent blood pressure medication change. His lisinopril has been increased. He reports no significant medical history other then having a few concisions. He does not smoke, drink alcohol, or use illicit drugs. He has been trying to exercise more and eat better. Reports no family history of cardiac issues. Since his last visit he reports he has been doing much better. He reports his stress has been reduced, and has no more chest discomforts. He also denies shortness of breath, palpitations, orthopnea, or swelling. During his stress test his blood pressure got to almost 200 systolic and we had increased his lisinopril. Patient reports headaches have improved and has been tolerating the increase well. Reports his blood pressures have been in the 120s consistently. [facility] Medical History Ascending aorta dilatation Hypertension H/O multiple concussions Family History Mother Stroke Father Enlarged heart Brother Leaky heart valve Social History Alcohol intake: never Patient Tobacco Use Status: Never used Tobacco Review of Systems Const Denies weakness ENT Denies dizziness Card Denies chest pain, Denies chest pain with activity, Denies syncope, Denies rapid heart rate, Denies pedal edema, Denies edema, Denies leg edema, Denies lightheadedness, Denies palpitations, Denies dyspnea, Denies dyspnea on exertion and Denies orthopnea Resp Denies cough, Denies dyspnea and Denies dyspnea on exertion GI Denies hematochezia and Denies change in stool character Musc Denies abnormal gait, Denies muscle cramps, Denies muscle weakness, Denies numbness, Denies radiating pain into limb and Denies tingling Neuro Denies abnormal gait, Denies dizziness, Denies syncope, Denies numbness, Denies tingling and Denies weakness Endo Denies palpitations Physical Exam Vital Signs: Last Vital Signs Pulse 88 05/09/24 12:58 BP 126/68 05/09/24 12:58 BMI result Body Mass Index 34.0 Const General: healthy appearing and no acute distress Orientation/consciousness: patient oriented x3 HEENT Head: Yes normal to inspection Eyes General: appearance normal, both eyes and all related structures Neck Neck: Yes normal visual inspection Chest Chest palpation & inspection: normal inspection of the chest Resp Effort & Inspection: normal respiratory effort Auscultation: clear to auscultation bilaterally Cardio Jugular venous distension: no JVD Palpation: normal PMI Rate: regular rate Rhythm: regular rhythm Heart sounds: S1 normal heart sound present, S2 normal heart sound present, no click, no gallops, no murmurs and no rubs GI Inspection: Yes normal to inspection Palpation (GI): Soft to palpation Skin General skin exam: no rashes or lesions noted Neuro General: patient oriented x3 Extrem General: Yes normal to inspection Psych Appearance: grossly normal Results Reviewed Results Reviewed: Protocol: EDWARD Max HR: 139 BPM 87% of Pred: 158 BPM Max BP: 198/088 mmHG Max Work Load: 10.1 METS Exercise stress test exercise 8 min of Edward porotocol achieving 87% MPHR, with mild SOB. no chest discomfort, with hypertensive response - max bp 198/88, with isolated PVC and PACs, without EKG changes. Test reviewed with Dr. Ferguson. Conclusions: - The left ventricular systolic function is normal. The calculated ejection fraction is 58% by biplane method. - There is moderate septal asymmetric hypertrophy. - No obvious valvular pathology seen on this study. - There is mild dilatation of the ascending aorta measuring 4.40 cm. Assessment & Plan Assessment & Plan (1) Hypertension: Code(s): I10 - Essential (primary) hypertension Category: Medical (2) Ascending aorta dilatation: Code(s): I77.810 - Thoracic aortic ectasia Category: Medical (3) Chest pain: Code(s): R07.9 - Chest pain, unspecified Category: Medical Plan Hypertension has much improved with the lisinopril 20 mg. Informed patient to continue monitoring blood pressures periodically. Goal of blood pressure less than 130/80. Reduction of salt and heart healthy diet discussed in detail.There is mild dilatation of the ascending aorta measuring 4.40 cm. We will send for repeat lab work after being on lisinopril now. Chest pain has completely resolved and headaches have improved with stress reduction in blood pressure medication increased. Report any new signs or symptoms. Emergency care if needed. We will repeat echocardiogram before next visit. Orders: Orders Basic Metabolic Panel 05/09/24 I10 - Essential (primary) hypertension CA echo transthoracic complete 10 Months I10 - Essential (primary) hypertension, I77.810 - Thoracic aortic ectasia Coding Level of Care Code Est Pt Level 4 (71234) Diagnoses Hypertension I10 Ascending aorta dilatation I77.810 Chest pain R07.9
== END 2024-05-09 13:17 | disposition home or self-care (01) ==
PROVIDERS: PCP Internal Medicine; Visit Provider Nurse Practitioner
DX: I10 Essential (primary) hypertension (principal); I77.810 Thoracic aortic ectasia; R07.9 Chest pain, unspecified
CPT/HCPCS: 99214

== ENCOUNTER → 2025-02-20 09:06 | Outpatient (REF) | payer BC, SELFPAY ==
--- NOTE | 2025-02-20 09:10 | CA_ITS ---
Transthoracic Echocardiogram Patient (Last, First, Middle): Claus Vaughn, Gender: Male Date of : 1960 Age: 64 Procedure Date: 02/20/2025 Procedure Type: Transthoracic Echocardiogram Location: OP Height: 195.58 cm Weight: 127.01 kg BSA: 2.58 m2 Heart Rate: bpm BP: 138 / 96 mmHg Soil Analyst: NICANOR Referring MD: James Jones MD Symptoms: I77.810 - Thoracic aortic ectasia Study Quality: Adequate with contrast ECG Rhythm: Sinus Conclusions: - The left ventricular systolic function is normal. The calculated ejection fraction is 58% by biplane method. - There is mild calcification of the aortic valve. - There is mild dilatation of the ascending aorta measuring 4.40 cm. Findings Procedure Information Contrast agent, definity, is being given per protocol without apparent complications. Left Ventricle Normal left ventricular cavity size. There is mildly increased left ventricular wall thickness. The left ventricular systolic function is normal. The calculated ejection fraction is 58% by biplane method. There is no evidence of regional wall motion abnormalities. Diastolic function is normal for age. Right Ventricle Mildly increased right ventricular cavity size. There is normal right ventricular systolic function. Atria Both atria are normal in size. Aortic Valve There is a normal trileaflet aortic valve. There is mild calcification of the aortic valve. There is no aortic valve stenosis. There is trace (trivial) aortic valve regurgitation. Mitral Valve The mitral valve appears normal. There is no mitral valve regurgitation. There is no mitral valve stenosis. Pulmonic Valve The pulmonic valve is likely normal. Tricuspid Valve There is trace tricuspid valve regurgitation. There is no evidence of pulmonary hypertension. Great Vessels There is mild dilatation of the ascending aorta measuring 4.40 cm. Venous The inferior vena cava was not well visualized. Pericardium/Pleural There is no evidence of pericardial effusion. Prior Study Comparison No significant change compared to prior study dated: 04/17/2024. Measurements 2D Linear Measurements IVSd: 1.23 0.6-0.9/0.6-1.0 cm LVIDd: 5.10 3.9-5.3/4.2-5.9 cm LVIDd Index: 1.98 2.4-3.2/2.2-3.1 cm/m2 LVIDs: 3.38 2.0-3.6 cm LVPWd: 1.04 0.7-1.1 cm LA Diam: 4.20 2.7-3.8/3.0-4.0 cm LAIDs Index: 1.63 1.5-2.3 cm/m2 LV Mass: 278.37 67-162/88-224 g LV Mass Index: 107.90 43-95/49-115 g/m2 LVOT Diam: 2.30 3.0+(-)1.3 cm 2D Systolic Function EF 4C: 56.50 >55% EF 2C: 59.20 >55% EF BiP: 57.50 >55% Mitral Valve MV Pk E: 0.73 MV PK A: 0.71 MV Decel Time: 179.00 E/A: 1.00 E'Lateral: 6.64 E'Medial: 6.74 E/E' Med: 10.90 E/E' Lat: 11.00 PHT: 52.00 MVA PHT: 4.23 Decel Pettis: 4.10 Aortic Valve AoV Pk Nicolás: 1.41 AoV Mn Nicolás: 1.01 AoV VTI: 0.29 AoV Pk Grad: 8.00 Aov Mn Grad: 5.00 HARMEET Cont.VTI: 2.61 LVOT LVOT Pk Nicolás: 0.89 LVOT Mn Nicolás: 0.56 LVOT VTI: 0.18 LVOT Pk Grad: 3.00 LVOT Mn Grad: 1.00 LVOT Diam: 2.30 LVOT Area: 4.15 Diastolic Function MV Pk E: 0.73 MV Pk A: 0.71 E/A: 1.00 E'Medial: 6.74 E/E' Med: 10.90 E' Laterial: 6.64 E/E' Lat: 11.00 Right Ventricle TAPSE (mm): 31.00 TVS' Nicolás: 19.00 Tricuspid Valve TR Pk Nicolás: 1.74 TR Pk Grad: 12.00 RA Press: 3.00 RVSP: 15.00 Great Vessels Aorta Sinus of Valsalva: 3.63 2.0-3.5 cm Ao Asc: 4.40 2.1-3.4 cm Updated in Other Vendor System with Status of Final James Jones MD electronically signed on 02/22/2025 11:26:40 AM with status of Final
== END ==
LOC: HO.CARD 09:06
PROVIDERS: PCP Internal Medicine; Visit Provider Internal Medicine
DX: I77.810 Thoracic aortic ectasia (principal)
CPT/HCPCS: 93306; Q9957

== ENCOUNTER → 2025-02-20 09:10 | Outpatient (BNV) | payer BC, SELFPAY | PROVIDERS: PCP Internal Medicine; Visit Provider Internal Medicine | DX: I70.0 Atherosclerosis of aorta (principal); I35.1 Nonrheumatic aortic (valve) insufficiency; I36.1 Nonrheumatic tricuspid (valve) insufficiency | CPT/HCPCS: 93306 ==

== ENCOUNTER 2025-05-09 12:27 | Outpatient (AMB) | payer BC, SELFPAY ==
--- NOTE | 2025-05-09 12:31 | A.OFFVIS_ITS ---
Vital Signs 05/09/25 12:32 Height 6 ft 5 in Weight 293 lb 3.437 oz BMI 34.8 BP 128/68 Blood Pressure Location Lt brachial Position Sitting Pulse 79 Pulse Source Monitor Intake Visit Reasons: 1 yr f/up echo Allergies Seasonal Allergies Allergy (Mild, Verified 03/30/24 15:05) cough rosuvastatin Adverse Reaction (Verified 03/30/24 15:15) memory issue Medication List - Last Reconciled 05/09/25 by James Jones MD lisinopril 20 mg PO DAILY HPI Comments Details: Claus is here for follow-up. This is my 1st appointment with him. In the past, had seen nurse practitioner. It seems that he had chest tightness that had happened after waking up which was reason for initial consult. However, it seems that those symptoms have completely resolved he does not get them anymore. Even when it happened, there was nothing exertional. He believes it resolved from anxiety and job stress. Otherwise, upon workup he had ascending aortic aneurysm which is being followed on echocardiogram. Overall, he states he is feeling good. No cardiac concerns. Of note, his brother who was 40 years old had surgery for thoracic aortic aneurysm but unclear details. [facility] Medical History Ascending aorta dilatation Hypertension H/O multiple concussions Family History (Updated 05/09/25 @ 12:56 by James Jones MD) Mother Stroke Father Enlarged heart Brother Leaky heart valve Aortic aneurysm, thoracic Social History Alcohol intake: never Patient Tobacco Use Status: Never used Tobacco Review of Systems Const Denies weakness ENT Denies dizziness Card Denies chest pain, Denies chest pain with activity, Denies syncope, Denies rapid heart rate, Denies pedal edema, Denies edema, Denies leg edema, Denies lightheadedness, Denies palpitations, Denies dyspnea, Denies dyspnea on exertion and Denies orthopnea Resp Denies cough, Denies dyspnea and Denies dyspnea on exertion GI Denies hematochezia and Denies change in stool character Musc Denies abnormal gait, Denies muscle cramps, Denies muscle weakness, Denies numbness, Denies radiating pain into limb and Denies tingling Neuro Denies abnormal gait, Denies dizziness, Denies syncope, Denies numbness, Denies tingling and Denies weakness Endo Denies palpitations Physical Exam Vital Signs: Last Vital Signs Pulse 79 05/09/25 12:32 BP 128/68 05/09/25 12:32 BMI result Body Mass Index 34.8 Const General: comfortable and no acute distress Orientation/consciousness: patient oriented x3 HEENT Other: Unremarkable Head: Yes normal to inspection Neck Neck: Yes normal visual inspection Chest Chest palpation & inspection: normal inspection of the chest Resp Auscultation: clear to auscultation bilaterally Cardio Palpation: normal PMI Heart sounds: S1 normal heart sound present, S2 normal heart sound present, no gallops, no murmurs and no rubs GI Palpation (GI): Soft to palpation Back/Spine/Pelvis Other: unremarkable Skin General skin exam: no rashes or lesions noted Neuro General: patient oriented x3 Extrem General: Yes normal to inspection Psych Mental Status: mental status grossly normal Office Procedures EKG Details: EKG with underlying sinus rhythm at 79/Min; no ischemic changes; [place] [id number], Complete Assessment & Plan Assessment & Plan (1) Ascending aorta dilatation: Code(s): I77.810 - Thoracic aortic ectasia Category: Medical Plan: Could have a genetic component as his brother also has the same. In the echocardiogram, ascending aortic size stable at 4.4 cm. Recheck in one year. Family screening discussed. (2) Hypertension: Code(s): I10 - Essential (primary) hypertension Category: Medical Plan: Continue lisinopril. Plan Discussion Notes I discussed with the patient the importance of monitoring the aortic enlargement and the need for a follow-up echocardiogram in one year. We also talked about the recommendation for an abdominal ultrasound to check for any additional aneurysms, considering the family history. The patient was informed about the management of hypertension and the necessity of regular blood pressure monitoring. Patient was informed and verbally consented to the use of an ambient scribe for clinic note documentation during this visit. Orders: Orders US abdominal aortic aneurysm Today I71.40 - Abdominal aortic aneurysm, without rupture, unspecified CA echo transthoracic complete 1 Year I77.810 - Thoracic aortic ectasia Patient Instructions: - Schedule an abdominal ultrasound to check for aneurysms. - Continue taking prescribed hypertension medication and monitor blood pressure regularly. - Follow up with an echocardiogram in one year to monitor aortic enlargement. Coding Level of Care Code Est Pt Level 4 (20518) Complex EM visit Add On G2211 Diagnoses Ascending aorta dilatation I77.810 Hypertension I10 CPT Codes EKG - CPT: 98696-[id number], Complete ([id number])
[2025-05-09 12:32] VITALS: BP 128/68; PULSE 79; BMI 34.8
== END 2025-05-09 12:54 | disposition home or self-care (01) ==
PROVIDERS: PCP Internal Medicine; Visit Provider Internal Medicine
DX: I77.810 Thoracic aortic ectasia (principal); I10 Essential (primary) hypertension
CPT/HCPCS: 93010; 99214

== ENCOUNTER → 2025-05-09 12:27 | Outpatient (BNVA) | payer BC, SELFPAY | PROVIDERS: PCP Internal Medicine; Visit Provider Internal Medicine | DX: I77.810 Thoracic aortic ectasia (principal) | CPT/HCPCS: 93005 ==

== ENCOUNTER 2025-07-31 08:34 | Outpatient (REF) | payer BC, SELFPAY ==
--- NOTE | ~2025-07-31 | US_ITS ---
CLINICAL HISTORY: I71.40 - Abdominal aortic aneurysm, without rupture, unspecified US Abdomen (AAA) Comparison: None provided Findings: Aorta proximal 1.8 cm. Aorta mid 1.6 cm. Aorta distal 1.7 cm. Right common iliac artery 1.0 cm. Left common iliac artery 1.4 cm. IMPRESSION: 1. No abdominal aortic aneurysm. This document has been electronically signed by: Juan M Do MD on 08/01/2025 09:07:24
--- OUTSIDE RECORDS SUMMARY | 2025-07-31 08:52 | XMS_ITS | Clinical Summary ---
Author Organization [facility] [address] [place] [address] [place] [address] Phone Care Team Providers Care Quill Collector Name Role Phone Ron Blancas MD Primary Care Provider [phone] Allergies No known active allergies Medications diclofenac (VOLTAREN) 1 % topical gel Apply 1 g topically 4 times daily as needed (neck pain). 4 Active multivit-min/iron /folic acid/K (ADULTS MULTIVITAMIN ORAL) Take by mouth. Activ e lisinopriL (PRINIVIL,ZESTRIL ) 20 mg tablet Take 1 tablet (20 mg total) by mouth 1 (one) time each day. 90 tablet 1 5 Active Active Problems Problem Noted Date Diagnosed Date Hypertension 01/03/2024 PLMD (periodic limb movement disorder) 1 Overview (09/20/2024): 03/2021 Polysomnogram did not reveal sleep apnea or nocturnal hypoxia. PLMD and snoring identified. Changing skin lesion 04/23/2020 Ascending aorta dilatation (CMS/HCC V24) 020 Overview (09/20/2024): ECHO 10/19/19: 4.3 CM. Lvef: 60-65% Asthma 03/30/2006 Hypercholesterolemia 03/30/2006 Encounters Date Type Department Care Team Description 06/19/2025 Telephone Adult Medicine [facility] [address] [place], [place] [phone] Ron Blancas MD 05/23/2025 10:00 AM EDT Office Visit Adult Medicine [address] [phone] Bebe Obando PA Hypertension, unspecified type (Primary Dx); Hypercholesterolemia; Leg cramps from Last 3 Months Immunizations Immunization Administration Dates Next Due Influenza trivalent, 0.5mL, preservative free (Fluarix; FluLaval; Fluzone) ages 6mo and older (Afluria) 3 years and older 06/27/2019 Pneumococcal polysaccharide 23 valent (Pneumovax 23) 2yo and older 10/16/2019 Td Tetanus diptheria (Tdvax) 7yo and older 02/07,11/15/2002 Tdap Tetanus diptheria acell ular pertussis (Boostrix; Adacel) 7yo and older 10/16/2019 Surgical History Surgery Date Site/Laterality Comments APPENDECTOMY PROCEDURE: MD APPENDECTOMY Medical History Medical History Date Comments Unspecified asthma(493.90) 03/30/2006 DX:Un specified asthma(493.90) Pure hypercholesterolemia 03/30/2006 DX:Pur e hypercholesterolemia Family History Medical History Relation Name Comments Other: Heart valve disease Brother Other: cardiomyopathy Father C HF Relation Name Status Comments Brother Alive Father Social History Tobacco Use Types Packs/Day Years Used Date Smoking Tobacco: Never Smokeless Tobacco: Never Tobacco Cessation:Counseling Given: Not Answered Alcohol Use Standard Drinks/Week Comments No 0 (1 standard drink = 0.6 oz pur e alcohol) Sex and Gender Information Value Date Recorded Sex Assigned at Not on file Legal Sex Male 4:26 AM EST Gender Identity Not on file Sexual Orientation Not on file Obstetrics History Last Filed Vital Signs Vital Sign Reading Time Taken Comments Blood Pressure 126/86 05/23/2025 9:57 AM EDT Pulse 76 05/23/2025 9:57 AM EDT Temperature 36.2 C (97.1 F) 05/23/2025 9:57 AM EDT Respiratory Rate - - Oxygen Saturation 96% 05/23/2025 9:57 AM EDT Inhaled Oxygen Concentration - - Weight 132 kg (292 lb 1.6 oz) 05/23/2025 9:57 AM EDT Height 195.6 cm (6' 5.01 ) 05/23/2025 9:57 AM ED T Body Mass Index 34.63 05/23/2025 9:57 AM EDT Plan of Treatment Upcoming Encounters Date Type Department Care Team (Late st Contact Info) Description 12/12/2025 11:30 AM EDT Office Visit Adult Medicine [facility] [address] [place] [phone] Ron Blancas MD [address] [place] [address] Health Maintenance Due Date Last Done Comments RSV Immunization Adult Patients (1 - Risk 50-74 years 1-dose series) 2012 Zoster Vaccines (1 of 2) 2012 Pneumococcal Vaccine: 50+ Years (2 of 2 - PCV) 10/16/2020 10/16/2019 HIV Screening 08/28/2022 Social Influencers of Health Screening 08/28/2022 Depression Screening 09/19/2024 Hypertension/CHF/CAD Annual BMP Blood Test 01/02/2025 01/03/2024 COVID-19 Vaccine (4 - 2024-2 6 season) 2025 09/08/2021, 12/31/2020, 12/09/2020 Influenza Vaccine (#1) 2025 9, 09/05/2017 Cholesterol Screening (Lipid Panel) 01/02/2029 01/03/2024 Colorectal Cancer Screening: Colonoscopy 02/08/2029 02/08/2019 DTaP,Tdap,and Td Vaccines (4 - Td or Tdap) 10/16/2029 10/16/2019, 02/07/2007, 11/15/2002 Hepatitis A Vaccines Aged Out 09/07/2017 No long er eligible based on patient's age to complete this topic Hepatitis C Screening Completed 10/17/2019 HIB Vaccines Aged Out No longer eligi ble based on patient's age to complete this topic HPV Vaccines Aged Out No longer eligi ble based on patient's age to complete this topic Hepatitis B Vaccines Aged Out No long er eligible based on patient's age to complete this topic IPV Vaccines Aged Out No longer eligi ble based on patient's age to complete this topic MMR Vaccines Aged Out No longer eligi ble based on patient's age to complete this topic Meningococcal ACWY Vaccine Aged Out N o longer eligible based on patient's age to complete this topic Meningococcal B Vaccine Aged Out No l onger eligible based on patient's age to complete this topic RSV Immunization Patients Under 20 months Aged Out No longer eligible b ased on patient's age to complete this topic Varicella Vaccines Aged Out No longer eligible based on patient's age to complete this topic Procedures Procedure Name Priority Date/Time Associated Diagnosis Comments ANNUAL BMP BLOOD TEST Routine 01/03/2024 LIPID PANEL Routine 01/03/2024 HEPATITIS C SCREENING Routine 10/17/2019 COLONOSCOPY Routine 02/08/2019 from Last 3 Months or Most Recently Relevant to Health Maintenance Results * Annual BMP Blood Test (01/03/2024) Pathologist [facility] Annual BMP Blood Test abstracted [facility] Provider HEALTH MAINTENANCE Final Result * (ABNORMAL) Lipid panel (01/03/2024) [facility] LDL/HDL Ratio 6(A) 0 - 4 Triglycerides 236(A) 0 - 150 mg/dL Cholesterol 222(A) 0 - 200 mg/dL HDL 39(A) >=40 mg/dL LDL Cholesterol 136(A) 0 - 100 mg/dL Blood Venous blood specimen / Unknown Result [facility] Provider LAB BLOOD ORDERABLES Raina l Result * Hepatitis C Screening (10/17/2019) [facility] Hepatitis C Screening abstracted Result [facility] Provider HEALTH MAINTENANCE Final Result * Colonoscopy (02/08/2019) [facility] Colonoscopy no interpretation , abstracted Anatomical Region Laterality Modality Other [facility] Provider HEALTH MAINTENANCE Final Result from Last 3 Months or Most Recently Relevant to Health Maintenance Insurance January [place], [place] [facility] Care Teams Quill Collector Relationship Specialty Start Date End Date Ron Blancas MD [address] [place] [address] PCP - General Internal Medicine 01/04/12
--- OUTSIDE RECORDS SUMMARY | 2025-07-31 08:52 | XMS_ITS | Clinical Summary ---
Author Organization [facility] Address [address] [place] [phone] Phone Care Team Providers Care Vice President Research Name Role Phone Ron Blancas MD Primary Care Provider + Allergies No known active allergies Medications cholecalciferol (VITAMIN D3) 1,000 unit tablet Take 1,000 Units by mouth daily. Active omega [id number]-fish oil 1,000 mg (120 mg-180 mg) Cap Take 1 capsule by mouth daily. Active ascorbic acid, vitamin C, (VITAMIN C) 250 MG tablet Take 250 mg by mouth daily. Active therapeutic multivitamin tablet Take 1 tablet by mouth daily. 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 Assessment & Plan (10/16/2018 6:08 PM EST): Increase hours at work Continue to take breaks as needed. Assessment & Plan (10/02/2018 9:23 AM EST): He can start back 25 hours a week on . 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 Continue exercise and prioritizing sleep. Assessment & Plan (09/20/2018 9:48 AM EST): Claus is improving. He will likely return to part-time work in 2-3 weeks. He should continue to test himself by doing more work at home to see if he is ready for return to work. Should continue the chiropractic as this is very helpful to decrease his pain and improve his recovery. Assessment & Plan (08/31/2018 2:30 PM EST): Return to exercise slowly Follow brain recommendation sheet. Cervicalgia 08/31/2018 Assessment & Plan (08/31/2018 2:29 PM EST): social worker palliative care Intractable acute post-traumatic headache 2017 Assessment & Plan (08/31/2018 2:30 PM EST): Headache prevention medication Take Fioricet for severe headaches. Family History Medical History Relation Comments Heart disease Father Alcohol use disorder Unspecified Arthritis Unspecified Cancer Unspecified Thyroid disease Unspecified Relation Status Comments Father Unspecified Social History Tobacco Use Types Packs/Day Years Used Date Smoking Tobacco: Never Smokeless Tobacco: Never Alcohol Use Standard Drinks/Week Comments No 0 (1 standard drink = 0.6 oz pur e alcohol) Education Answer Date Recorded Are you interested in more education? Not on cate e 01/14/2023 Are you concerned about learning? Not on file 01/14/2023 No 01/14/2023 No 01/14/2023 Digital Access Answer Date Recorded No 02/12/2023 No 02/12/2023 No 02/12/2023 Reliable internet access at home? Not on file 02/12/2023 Device with a working camera? Not on file Sex and Gender Information Value Date Recorded Sex Assigned at Not on file Legal Sex Male 9:45 PM EDT Gender Identity Not on file Sexual Orientation Not on file Last Filed Vital Signs Vital Sign Reading Time Taken Comments Blood Pressure 146/104 04/16/2022 3:35 PM EDT Pulse 85 04/16/2022 3:35 PM EDT Temperature 37 C (98.6 F) 04/16/2022 3:35 PM EDT Respiratory Rate 18 04/16/2022 3:35 PM EDT Oxygen Saturation 98% 04/16/2022 3:35 PM EDT Inhaled Oxygen Concentration - - Weight 122.5 kg (270 lb) 04/16/2022 3:35 PM EDT Height 195.6 cm (6' 5 ) 04/16/2022 3:35 PM EDT Body Mass Index 32.02 04/16/2022 3:35 PM EDT Plan of Treatment Health Maintenance Due Date Last Done Comments LIPID PANEL 1962 DEPRESSION SCREENING 1974 HEPATITIS C SCREENING 1980 HIV ONE-TIME SCREENING (18-6 5 YEARS) 1980 COLOGUARD 2007 COLONOSCOPY 2007 COLORECTAL CANCER SCREENING 2007 FIT TEST 2007 FOBT 2007 SIGMOIDOSCOPY 2007 VIRTUAL COLONOSCOPY 2007 ZOSTER VACCINES (1 of 2) 2012 PNEUMOCOCCAL VACCINES (50+ years) (2 of 2 - PCV) 10/16/2020 10/16/2019 INFLUENZA VACCINE (#1) 2025 9, 09/05/2017 COVID-19 VACCINE (2 - 2024-2 6 season) 2025 12/09/2020 Adult Td,Tdap Booster 10/16/2029 10/16/2019 , 02/07/2007, 11/15/2002 RSV VACCINE (1 - 1-dose 75+ series) 2037 HEPATITIS A VACCINES Aged Out 09/07/2017 No long er eligible based on patient's age to complete this topic SMOKING STATUS SCREENING (On ce After 26 Yrs) Completed 04/16/2022 HIB VACCINES Aged Out No longer eligi ble based on patient's age to complete this topic IPV VACCINES Aged Out No longer eligi ble based on patient's age to complete this topic MENINGOCOCCAL VACCINES (ACWY) Aged Out No longer eligible based on patient's age to complete this topic MENINGOCOCCAL VACCINES (B) Aged Out N o longer eligible based on patient's age to complete this topic Medical Devices Not on file [place] [facility] [employer] [place] [facility] [place] [facility] [employer] [place] [facility] [place] [facility] [place] [facility] [place] [facility] [employer] [employer] [place] [facility] [employer] Care Teams Vice President Research Relationship Specialty Start Date End Date Ron Blancas MD [address] [place] [address] [phone] PCP - General Internal Medicine 04/20/22 Additional Source Comments The information contained in this document represents components of the legal health record. It is not the complete legal health record.[facility]
== END 2025-07-31 08:35 | disposition home or self-care (01) ==
LOC: HO.US 08:34
PROVIDERS: PCP Internal Medicine; Visit Provider Internal Medicine
DX: I71.40 Abdominal aortic aneurysm, without rupture, unspecified (principal)
CPT/HCPCS: 76706

== ENCOUNTER → 2025-07-31 08:37 | Outpatient (BNV) | payer BC, SELFPAY | PROVIDERS: PCP Internal Medicine; Visit Provider Specialist | DX: I71.40 Abdominal aortic aneurysm, without rupture, unspecified (principal) | CPT/HCPCS: 76706 ==